=== PATIENT | male | born 1990 | race Two or more races ===

== ENCOUNTER 2019-01-24 19:52 | Emergency (ER) | payer MEDICAID ==
[~2019-01-24] VITALS: Ht 182.9 cm; Wt 154.2 kg
--- NOTE | 2019-01-24 20:06 | NUR ---
Patient does not wish to proceed with medical care recommended by Dr. Robison. Patient given information related to possible complications, up to and including , which could occur as a result of leaving the hospital at this time. Patient verbalizes understanding of risks involved due to leaving against medical advice. Patient has signed AMA form.
== END 2019-01-24 20:09 | disposition left against medical advice (07) ==
LOC: ER 19:54
DX: R56.9 Unspecified convulsions (principal)
CPT/HCPCS: A4663